=== PATIENT | female | born 1950 | race Caucasian/White ===

== ENCOUNTER → 2016-06-21 | Outpatient (CLI) | payer OTHER ==
[~2016-06-21] VITALS: Ht 149.9 cm; Wt 61.4 kg
[~2016-06-21] MED LIST: ADULT LOW DOSE81 M1 PO; ADVAIR 100/501 DISK IH; ADVAIR 250/501 DISK IH; ADVAIR 500/501 DISK IH; ALAVERT10 MG PO; ASPIRIN81 M1 PO; ASTEPRO 0.15%30 ML BOTH NARES; ATROVENT H200 INHALA IH; Advair 500/50 Diskus IH; Astelin, Astepro 0.1 BOTH NARES; BENADRYL25 MG PO; CALCIUM + VITA1 EACH PO; CALCIUM 500 +1 EAC2 PO; CEFTIN500 MG PO; DAILY VALUE1 EACH PO; DUONEB 2.5-0.5 M3 ML IH; DuoNeb IH; FISH OIL 1,001000 M1 PO; Fish Oil PO; GABAPENTIN300 MG PO; LEVOTHYROXINE50 MCG PO; Levaquin PO; OMEPRAZOLE40 M1 PO; PREDNISONE10 MG PO; PREDNISONE20 MG PO; ROBITUSSIN DM118 ML PO; SINGULAIR10 MG PO; SPIRIVA RESPIMAT4 GM IH; TESSALON200 MG PO; THERAGRAN1 TABLET PO; VENTOLIN HFA18 GM IH; XOPENEX1.25 MG/0. AEROSOL; ZYRTEC10 M3 PO; predniSONE PO
[2016-06-21 13:08] VITALS: BP 119/67
== END | disposition home or self-care (01) ==
LOC: IVINF 06-14 13:30
DX: M85.80 Other specified disorders of bone density and structure, unspecified site (principal); Z88.1 Allergy status to other antibiotic agents; Z88.8 Allergy status to other drugs, medicaments and biological substances
CPT/HCPCS: 96365; J3489

== ENCOUNTER 2017-06-12 09:56 | Emergency (ER) | payer OTHER ==
[~2017-06-12] VITALS: Ht 149.9 cm; Wt 61.0 kg
[2017-06-12 10:58] LABS: HEMATOCRIT 40.6 % (36.0-46.0); HEMOGLOBIN 13.2 G/DL (11.9-15.5); MCHC 32.5 G/DL (30.0-36.0); MCV 98.3 FL (83-99); RBC DIS.WIDTH-CV 14.4 % (11.8-14.6); RBC DIS.WIDTH-SD 52.3 % (39-53); RED BLOOD COUNT 4.13 M/uL (3.80-5.20); WHITE BLOOD COUNT 5.5 K/uL (4.1-10.2)
[2017-06-12 10:59] LABS: PLATELET COUNT 189 K/uL (156-360)
[2017-06-12 11:13] LABS: CHLORIDE 107 mEq/L (99-109); POTASSIUM 5.7 mEq/L (3.7-5.4); SODIUM 142 mEq/L (136-147)
[2017-06-12 11:15] LABS: GLUCOSE 92 mg/dL (70-99)
[2017-06-12 11:19] LABS: CREATININE 0.8 mg/dL (0.6-1.3); GFR ESTIMATE (CALCULATED) > 59 mL/min/; UREA NITROGEN (BUN) 14 mg/dL (9-23)
[2017-06-12] MEDS ORDERED: PREDNISONE20 MG PO (12:35)
[2017-06-12 13:50] VITALS: BP 125/81
== END 2017-06-12 13:51 | disposition home or self-care (01) ==
LOC: EME 09:56
DX: J44.0 Chronic obstructive pulmonary disease with (acute) lower respiratory infection (principal); J20.9 Acute bronchitis, unspecified; K21.9 Gastro-esophageal reflux disease without esophagitis; Z88.1 Allergy status to other antibiotic agents; Z88.8 Allergy status to other drugs, medicaments and biological substances; Z87.891 Personal history of nicotine dependence
CPT/HCPCS: 71046; 80048; 85027; 99281; 99284; J1100; J7040

== ENCOUNTER → 2017-11-08 | Outpatient (CLI) | payer OTHER ==
[~2017-11-08] VITALS: Ht 149.9 cm; Wt 57.0 kg
[~2017-11-08] MED LIST changes: +ADVAIR HFA120 INHAL1 IH; +ATIVAN0.5 MG PO; +CELEBREX200 MG PO; +GLUCOSAMINE H1500 MG PO; +XOPENEX0.31 MG/3 IH
[2017-11-08 11:11] VITALS: BP 124/70
== END | disposition home or self-care (01) ==
LOC: IVINF 11-06 11:00
DX: M85.80 Other specified disorders of bone density and structure, unspecified site (principal)
CPT/HCPCS: 96365; J3489